=== PATIENT | female | born 1955 | race Hispanic/Latino ===

== ENCOUNTER 2022-02-19 15:40 | Outpatient (CLI) | payer MEDICARE, OTHER | END 2022-02-19 15:41 | disposition home or self-care (01) | LOC: LAB 15:40 | PROVIDERS: ATTEND Specialist | DX: E11.42 Type 2 diabetes mellitus with diabetic polyneuropathy (principal); G61.9 Inflammatory polyneuropathy, unspecified | CPT/HCPCS: 82306; 82607; 83921; 84165; 84443; 86038; 86334; 86592 ==